=== PATIENT | male | born 1970 | race Caucasian/White ===

== ENCOUNTER 2016-10-04 20:03 | Emergency (ER) | payer MEDICARE ==
--- NOTE | ~2016-10-04 | EKG ---
PATIENT: SUMMER HARRIS UNIT #: [id number] Ventricular Rate: 85 BPM Atrial Rate: 85 BPM P-R Interval: 146 ms QRS Duration: 76 ms Q-T Interval: 402 ms QTC Calculation(Bezet): 478 ms P [place]: 61 degrees Calculated R [place]: 81 degrees Calculated T [place]: -50 degrees Diagnosis Line: Normal sinus rhythm Diagnosis Line: ST and T wave abnormality, consider inferior Diagnosis Line: ischemia Diagnosis Line: Abnormal ECG Diagnosis Line: No previous ECGs available Diagnosis Line: Confirmed by SANDY URBINA MD ([id number]) on Diagnosis Line: 10/06/2016 10:45:10 AM INTERPRETING MD: LORENZO
--- NOTE | ~2016-10-04 | CT71 ---
[facility] A Service of [facility] & [facility] RADIOLOGY TEXT RESULTS PATIENT: SUMMER HARRIS LOCATION: [facility] : 66 UNIT #: [id number] AGE: [address]: Ana Rangel MD SEX: M ORDER DR: [id number] [facility] [address] [facility]. [place], [place] [address] [id number] MR#: [id number] Acc #: [id number] NAME: SUMMER HARRIS : 1970 SEX: M STUDY DATE/TIME: 10/04/2016 22:15 UNIT: [facility] ROOM: STUDY DESCRIPTION: CT Head Wo Contrast Attending Physician: Ana Rangel M.D. Ordering Physician: Ana Rangel M.D. Primary Care Physician: Shayne William M.D. MEDICAL IMAGING REPORT This report is preliminary unless electronic signature is present EXAM Head CT 10/04 at 22:15 INDICATIONS Difficulty walking with weakness over the last 3 weeks. FINDINGS Axial images were obtained from base to vertex without contrast. Comparison made with 07/26/2015. This CT exam was performed with one or more of the following radiation dose reduction techniques: automatic control, adjustment of mA and/or kV according to patient size, and iterative reconstruction. Again seen is mild generalized atrophy. Ventricular size and configuration are within normal limits. No acute infarct or hemorrhage is seen. No masses. No skull fracture. IMPRESSION Generalized atrophy. No acute findings. No change from prior. Dictated by... Handy Sanchez Jr., M.D. THIS IS AN ELECTRONICALLY VERIFIED REPORT Handy Sanchez Jr., M.D. at 10/05/2016 5:51 AM JOSIAH/uyen TD: 10/05/2016 03:22 JOB #: [id number] MEDICAL IMAGING REPORT Page 1 of 1 COPY
[~2016-10-04 20:03] MED LIST: AMITRYPTYLINE PO; AMOXICILLIN PO; ATENOLOL PO; CELEBREX PO; HCTZ PO; HYDROCODONE-APA1 T30 PO; KETOPROFEN PO; LISINOPRIL PO; MOBIC PO; PAXIL PO; PEN-VEE K PO; PRILOSEC PO; ULTRAM PO; VICODIN 5/500 T1 TAB PO; VICODIN PO; ZESTORETIC 20/21 TAB PO
[2016-10-04 21:44] LABS: BASOPHIL# 0.1 X10e3 (0-0.3); BASOPHIL% 0.7 % (0-2.5); DIFF IND YES; EOSINOPHIL# 0.1 X10e3 (0-0.7); EOSINOPHIL% 0.9 % (0.0-7.0); HEMATOCRIT 33.7 % (38.0-50.0); HEMOGLOBIN 11.4 gm/dL (13.0-16.0); LYMPHOCYTE# 3.2 X10e3 (1.0-3.5); LYMPHOCYTE% 36.4 % (17.0-45.0); MEAN CELL VOLUME 115.8 FL (83-96); MEAN CORPUSCULAR HEMOGLOBIN 39.3 PG (28-34); MEAN PLATELET VOLUME 7.9 FL (6.5-11.5); MONOCYTE# 0.4 X10e3 (0-1.0); MONOCYTE% 4.8 % (3.0-12.0); NEUTROPHIL% 57.2 % (40-75); PLATELET COUNT 264 X10e3 (140-420); RED BLOOD COUNT 2.91 X10e (3.90-5.60); RED CELL DISTRIBUTION WIDTH 15.6 % (11.0-15.5); WHITE BLOOD COUNT 8.8 X10e3 (4.0-10.5)
[2016-10-04 21:56] LABS: INR 1.1; PARTIAL THROMBOPLASTIN TIME 29.1 SECONDS (23.5-31.3); PROTHROMBIN TIME (PATIENT) 12.3 SECONDS (10.0-11.7)
[2016-10-04 21:58] LABS: URINE SOURCE CLEAN CATCH
[2016-10-04 22:06] LABS: URINE APPEARANCE CLEAR; URINE BILIRUBIN NEG (NEG); URINE BLOOD NEG (NEG); URINE COLOR YELLOW; URINE GLUCOSE NEG (NEG); URINE KETONE NEG (NEG); URINE LEUKOCYTE ESTERASE NEG (NEG); URINE NITRATE NEG (NEG); URINE PH 6.5 (5-8); URINE PROTEIN NEG (NEG); URINE SPECIFIC GRAVITY 1.006 (1.003-1.035); URINE UROBILINOGEN 0.2 MG/DL (NEG)
[2016-10-04 22:11] LABS: ANISOCYTOSIS SL; PLATELET ESTIMATE NORMAL (NORMAL)
[2016-10-04 22:12] LABS: CULTURE INDICATED? NO
[2016-10-04 22:20] LABS: AMPHETAMINE NEG (NEG); BARBITURATES NEG (NEG); BENZODIAZEPINES POS (NEG); COCAINE NEG (NEG); MARIJUANA NEG (NEG); OPIATES NEG (NEG); TRICYCLIC ANTIDEPRESSANTS NEG (NEG); U METHADONE NEG (NEG)
[2016-10-04 22:50] LABS: ALBUMIN SERUM 2.5 g/dL (3.5-5.0); ALKALINE PHOSPHATASE 285 U/L (32-92); ALT (SGPT) 23 U/L (10-40); AST (SGOT) 88 U/L (10-42); BILIRUBIN, DIRECT 0.3 mg/dL (0.0-0.2); BILIRUBIN,INDIRECT 0.3 mg/dL (0.0-0.9); BILIRUBIN,TOTAL 0.6 mg/dL (0.2-2.0); BLOOD UREA NITROGEN <5 mg/dL (9-23); BUN/CREATININE RATIO 7.14; CALCIUM SERUM 8.3 mg/dL (8.4-10.2); CARBON DIOXIDE 25 mmol/L (22-31); CHLORIDE 97 mmol/L (100-111); CREATININE SERUM 0.7 mg/dL (0.6-1.4); GLOM FILT RATE Estimated 111.6 mL/min (>60); GLUCOSE FASTING 83 mg/dL (70-110); MAGNESIUM 1.5 mg/dL (1.6-3.0); PROTEIN TOTAL SERUM 6.9 g/dL (6.0-8.3); SODIUM 132 mmol/L (135-145)
[2016-10-04 22:51] LABS: ALCOHOL BLOOD 192 mg/dL (0); POTASSIUM 2.9 mmol/L (3.5-5.1)
== END 2016-10-04 23:48 | disposition home or self-care (01) ==
LOC: CED 20:03
PROVIDERS: Student in an Organized Health Care Education/Training Program
DX: E87.6 Hypokalemia (principal); E83.42 Hypomagnesemia; F10.10 Alcohol abuse, uncomplicated; F19.10 Other psychoactive substance abuse, uncomplicated; Y90.6 Blood alcohol level of 120-199 mg/100 ml; I10 Essential (primary) hypertension; F17.200 Nicotine dependence, unspecified, uncomplicated; Z88.5 Allergy status to narcotic agent; Z79.82 Long term (current) use of aspirin; Z79.899 Other long term (current) drug therapy; Z86.19 Personal history of other infectious and parasitic diseases
CPT/HCPCS: 36415; 70450; 80048; 80076; 80307; 81003; 83735; 85025; 85610; 85730; 93005; 99285; G0480; J3475

== ENCOUNTER → 2016-10-10 | Outpatient (CLI) | payer MEDICARE ==
--- NOTE | ~2016-10-10 | US5 ---
[facility] A Service of [facility] & [facility] RADIOLOGY TEXT RESULTS PATIENT: SUMMER HARRIS LOCATION: [facility] : 66 UNIT #: [id number] AGE: [address]: Shayne William MD SEX: M ORDER DR: [id number] [address] [address] [id number] O MR#: [id number] Acc #: [id number] NAME: SUMMER HARRIS : 1970 SEX: M STUDY DATE/TIME: 10/10/2016 9:46 UNIT: [facility] ROOM: STUDY DESCRIPTION: US Abdominal Complete Attending Physician: Shayne William M.D. Referring Physician: Shayne William M.D. Ordering Physician: Shayne William M.D. Primary Care Physician: Shayne William M.D. MEDICAL IMAGING REPORT This report is preliminary unless electronic signature is present. EXAM Abdominal ultrasound HISTORY Choledocholithiasis. Elevated liver enzymes. Hepatitis. No abdomen pain. FINDINGS Ultrasound examination of the abdomen demonstrates a 1.7 cm gallstone, and moderate gallbladder wall thickening measuring up to 6 mm, and small amount of adjacent pericholecystic fluid. In the appropriate clinical context, these findings could be due to cholecystitis, but there is no gallbladder distension and there is no biliary dilatation. Correlation with the patient's symptoms is recommended. Gallstones have been noted on prior CT and ultrasound as well. Probable fatty infiltration of the liver. There is a hyperechoic region along the anterior margin of the right portal vein, measuring 1.7 cm. This could be periportal fat, but was not demonstrated on prior CT or ultrasound studies. The previously noted probable hemangioma in the lateral right hepatic lobe is not identified on ultrasound today. No additional hepatic lesion. No biliary dilatation. The common bile duct measures 2 mm in diameter. Evaluation of both kidneys demonstrates no renal mass or hydronephrosis. Spleen is normal. Normal caliber abdominal aorta. No ascites. The partly visualized pancreas is unremarkable. The pancreatic head and tail are incompletely visualized. IMPRESSION 1. A 1.7 cm gallstone. Moderate gallbladder wall thickening and small amount of adjacent pericholecystic fluid. Findings could be secondary to cholecystitis. However, there is no biliary dilatation and no gallbladder distension. 2. Probable fatty infiltration of the liver. 3. Probable fatty infiltration of the liver. 4. A 1.7 cm oval hyperechoic region along the anterior margin of the STS. [facility] A Service of [facility] RADIOLOGY TEXT RESULTS PATIENT: SUMMER HARRIS LOCATION: [facility] : 66 UNIT #: [id number] AGE: [address]: Shayne William MD SEX: M ORDER DR: right portal vein was not noted on prior CT or ultrasound studies. This could be secondary to periportal fat. Consider further evaluation with CT abdomen with IV contrast when clinically appropriate. 5. Remainder of the abdominal ultrasound is unremarkable. The previously noted hemangioma in the right hepatic lobe on CT and ultrasound is not demonstrated today. Dictated by... Alex Zamora M.D. THIS IS AN ELECTRONICALLY VERIFIED REPORT Alex Zamora M.D. at 10/11/2016 2:36 PM ALEX/guerrero TD: 10/11/2016 02:04 JOB #: [id number] MEDICAL IMAGING REPORT Page 1 of 1
== END | disposition home or self-care (01) ==
LOC: SGUS 09:15
DX: K75.9 Inflammatory liver disease, unspecified (principal); K80.50 Calculus of bile duct without cholangitis or cholecystitis without obstruction; R94.5 Abnormal results of liver function studies; E77.8 Other disorders of glycoprotein metabolism; F10.20 Alcohol dependence, uncomplicated; K80.20 Calculus of gallbladder without cholecystitis without obstruction
CPT/HCPCS: 76700